=== PATIENT | female | born 1960 | race Two or more races ===

== ENCOUNTER 2020-01-30 07:19 | Outpatient (CLI) | payer OTHER | END 2020-01-30 07:42 | disposition home or self-care (01) | LOC: NUCLEAR 07:19 | PROVIDERS: ATTEND Internal Medicine Cardiovascular Disease | DX: I11.9 Hypertensive heart disease without heart failure (principal); I70.0 Atherosclerosis of aorta; I48.0 Paroxysmal atrial fibrillation | CPT/HCPCS: 78452; A9500; 93017 ==